=== PATIENT | male | born 1975 | race Caucasian/White ===

== ENCOUNTER 2018-04-10 12:20 | Emergency (ER) | payer MEDICARE, OTHER, SELFPAY ==
[2018-04-10 12:21] VITALS: BP 135/81; PULSE 92; RESP 16; TEMP 36.5; O2SAT 95; BMI 29.5
[2018-04-10 12:40] VITALS: BP 135/89; PULSE 84; RESP 20; O2SAT 97
--- NOTE | 2018-04-10 12:44 | EKG12_ITS ---
Test Reason : Blood Pressure : / mmHG Vent. Rate : 083 BPM Atrial Rate : 083 BPM P-R Int : 000 ms QRS Dur : 182 ms QT Int : 450 ms P-R-T Axes : 258 250 035 degrees QTc Int : 528 ms Ventricular-paced rhythm Abnormal ECG No previous ECGs available Confirmed by TYESHA LEGGETT, KALPANA ([id number]), photograph editor CHRIS DONOHUE ([id number]) on 04/22/2018 8:38:13 AM Referred By: Confirmed By:KALPANA ARAMBULA MD
--- NOTE | 2018-04-10 12:45 | CT_ITS ---
STUDY: CT BRAIN WITHOUT CONTRAST REASON FOR EXAM: Male, 42 years old. Headache and neck pain. RADIATION DOSAGE (If Supplied By Facility): CTDIvol = ( 44.99 ) mGy, DLP = ( 796.11 ) mGycm TECHNIQUE: Transaxial CT imaging of the brain was performed without administration of intravenous contrast material. Individualized dose optimization techniques were used for this CT. COMPARISON: None. FINDINGS: Normal soft tissue structures. Normal calvarium. There is asymmetry of the ventricles consistent with an anatomic variant. Normal white matter tracts of the cerebral hemispheres. Normal basal ganglia and thalami. Normal brainstem. Normal cerebellum. There is no intracranial hemorrhage. There are no findings of an acute ischemic infarction. There is mucosal thickening of the maxillary sinuses and ethmoid sinuses with possible retention cyst in the left maxillary sinus. CT/Brain/Head without Contrast IMPRESSION: No acute intracranial process. Sinus disease. Electronically Signed: Myron Merchant MD at 13:39 EDT Tel , Service support ,
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
--- NOTE | 2018-04-10 12:50 | RAD_ITS ---
STUDY: X-RAY CHEST REASON FOR EXAM: Male, 42 years old. Chest pain. TECHNIQUE: AP upright portable view. COMPARISON: None. FINDINGS: 3 pacing leads in the heart. The lungs are clear and expanded. There is no demonstrated pleural abnormality. Normal size heart. Normal mediastinum and reggie. Normal visualized pulmonary arteries. Normal visualized aortic arch and descending thoracic aorta. Normal visualized thoracic spine. Normal visualized ribs, clavicles, and shoulders. There is no demonstrated abnormality of the visualized soft tissue structures of the upper abdomen. RAD/Chest 1 View (Portable) IMPRESSION: No acute cardiopulmonary pathology. Electronically Signed: Nic Carranza MD at 13:34 EDT , Service support ,
[2018-04-10] MEDS: Aspirin 81 MG TAB.CHEW 324 MG PO (12:56)
[2018-04-10 12:58] LABS: Absolute Lymphocyte Count 2.39 X10^3/ul (0.83-4.51); Absolute Neutrophil Count 5.5 X10^3/uL (2.0-7.7); Basophil# 0.03 X10^3/uL; Basophil% 0.3 % (0-1); Eosinophil# 0.22 X10^3/uL; Eosinophils% 2.5 % (0-5); Hematocrit 45.8 % (40-54); Hemoglobin 15.5 g/dl (13.0-16.5); Lymphocyte # 2.39 X10^3/ul (4.0); Lymphocyte % 27.1 % (19-41); Mean Corp Hgb Conc 33.8 g/gl (32-36); Mean Corpuscular Hgb 31.2 pg (27.0-32.0); Mean Corpuscular Volume 92.2 fL (80-94); Monocyte# 0.69 X10^3/uL; Monocyte% 7.8 % (0-10); Neutrophil # 5.47 X10^3/uL (2.7-7.7); POSITIVE COUNT NO; POSITIVE DIFFERENTIAL NO; POSITIVE MORPHOLOGY NO; Platelet Count 306 K/mm3 (150-450); RBC Distribution Width CV 13.5 % (11.6-14.6); RBC Distribution Width SD 44.4 fl (35.1-43.9); Red Blood Count 4.97 M/mm3 (4.6-6.2); White Blood Count 8.8 K/mm3 (4.4-11.0)
[2018-04-10 13:29] LABS: Anion Gap 7 (5-15); BUN 11 mg/dL (7-18); BUN/Creat Ratio 9.4 RATIO (10-20); Calcium,Total 8.6 mg/dL (8.5-10.1); Chloride 107 mmol/L (98-107); Creatinine, Serum 1.17 mg/dL (0.70-1.30); EST Glomerular Filtration Rate 73 mL/min (>60); Est Glom Filt Rate - Afr Amer 88 mL/min (>60); Glucose 95 mg/dL (74-106); Potassium 3.4 mmol/L (3.5-5.1); Sodium Level 141 mmol/L (136-145)
[2018-04-10 13:33] VITALS: BP 134/90; PULSE 81; RESP 17; O2SAT 97
[2018-04-10 14:33] VITALS: BP 147/95; PULSE 81; RESP 19; O2SAT 96
== END 2018-04-10 14:57 | disposition home or self-care (01) ==
PROVIDERS: Emergency Provider Emergency Medicine
DX: T82.897A Other specified complication of cardiac prosthetic devices, implants and grafts, initial encounter (principal); R51 Headache; Z72.0 Tobacco use
CPT/HCPCS: 70450; 71045; 80048; 84484; 85025; 93005; 99285; A4216